=== PATIENT | female | born 1975 | race Caucasian/White ===

== ENCOUNTER → 2016-06-17 | Outpatient (CLI) | payer OTHER ==
--- NOTE | 2016-06-17 15:04 | XR ---
EXAMINATION TYPE: XR shoulder complete RT, XR humerus RT DATE OF EXAM: 06/17/2016 2:57 PM CLINICAL HISTORY: pain TECHNIQUE: Three views of the right shoulder are obtained. COMPARISON: None FINDINGS: There is no acute fracture/dislocation evident. The acromioclavicular and glenohumeral esther int spaces appear within normal limits. The visualized ribs are intact and unremarkable. IMPRESSION: 1. There is no acute fracture or dislocation. ICD 10 NO FRACTURE, INITIAL EVALUATION EXAMINATION TYPE: XR shoulder complete RT, XR humerus RT DATE OF EXAM: 06/17/2016 2:57 PM CLINICAL HISTORY: pain COMPARISON: NONE TECHNIQUE: Frontal and lateral images of the right humerus are obtained. FINDINGS: There is no acute fracture/dislocation evident. The joint spaces appear within normal limi ts. The overlying soft tissue appears unremarkable. IMPRESSION: There is no acute fracture or dislocation.ICD 10 NO FRACTURE, INITIAL EVALUATION
== END | disposition home or self-care (01) ==
LOC: RADXRMAIN 14:41
PROVIDERS: ATTEND Emergency Medicine
DX: S43.401A Unspecified sprain of right shoulder joint, initial encounter (principal)